=== PATIENT | female | born 1950 | race Caucasian/White ===

== ENCOUNTER 2017-01-26 17:47 | Emergency (ER) | payer MEDICARE, OTHER ==
[~2017-01-26] VITALS: Ht 167.6 cm; Wt 63.5 kg
[~2017-01-26 17:47] MED LIST: ALPR0.5T PO; AMIT25TA24 PO; Acetaminophen PO; CALC-555 PO; DICL25TA2 PO; Docusate Sodium PO; MAG30ORA PO; MAGN400O4 PO; MENT71OI TOP; MULT-24 PO; Magnesium Oxide PO; OMEG1CAP PO; Oxycodone Hcl PO; PANT40TA2 PO; Prednisone PO; TEMA15CA5 PO
--- NOTE | 2017-01-26 18:46 | NUR ---
PT WAS EVALUATED BY DR ADAM. PT WAS ABLE TO WALK WITH WALKER. GAIT IS STABLE. DR ADAM EXPLAINED D/C INSTRUCTIONS TO THE PT. PT WAS TRANSFERED TO HER HOME VIA [facility].
[2017-01-26 18:52] VITALS: BP 138/76
== END 2017-01-26 19:02 | disposition home or self-care (01) ==
LOC: ER 17:47
DX: R53.1 Weakness (principal); M19.90 Unspecified osteoarthritis, unspecified site; F32.9 Major depressive disorder, single episode, unspecified; F41.9 Anxiety disorder, unspecified; F10.20 Alcohol dependence, uncomplicated; F19.10 Other psychoactive substance abuse, uncomplicated
CPT/HCPCS: A4663